=== PATIENT | male | born 2000 | race Two or more races ===

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

== ENCOUNTER 2023-10-30 10:31 | Outpatient (CLI) | payer OTHER ==
--- NOTE | 2023-10-30 12:54 | XRAY Report ---
PROCEDURE: Chest 2V INDICATIONS: CONTACT W/HAZARDOUS MATERIAL,NAUSEA,CHEST PAIN TECHNIQUE: 2 views of the chest were acquired. COMPARISON: No relevant comparisons at time of dictation. FINDINGS: Surgical changes and devices: None. Lungs and pleura: No pleural effusions or pneumothorax. Lungs are clear. Mediastinum: Mediastinal contours appear normal. Heart size is normal. Bones and chest wall: No suspicious bony lesions. Overlying soft tissues appear unremarkable. IMPRESSION: No acute cardiopulmonary process. Reviewed by: Nic Chow MD on 10/30/2023 12:52 PM PDT Approved by: Nic Chow MD on 10/30/2023 12:52 PM PDT Station ID: [id number]
== END 2023-10-30 10:32 | disposition home or self-care (01) ==
LOC: DI 10:31
PROVIDERS: ATTEND Registered Nurse
DX: R07.89 Other chest pain (principal); R11.0 Nausea; Z77.098 Contact with and (suspected) exposure to other hazardous, chiefly nonmedicinal, chemicals